=== PATIENT | female | born 1935 | race Caucasian/White ===

== ENCOUNTER → 2017-05-23 | Outpatient (REF) | LOC: ZLAB.WCH 08:45 | DX: Z01.89 Encounter for other specified special examinations (principal) ==

== ENCOUNTER → 2021-05-09 | Outpatient (CLI) | payer MEDICARE, BC | LOC: COL.RAD 07:27 | DX: M51.37 Other intervertebral disc degeneration, lumbosacral region (principal); M48.07 Spinal stenosis, lumbosacral region ==